=== PATIENT | female | born 1980 | race Two or more races ===

== ENCOUNTER 2018-05-09 22:18 | Emergency (ER) | payer MEDICAID ==
[~2018-05-09] VITALS: Ht 162.6 cm; Wt 62.1 kg
[2018-05-09 22:40] VITALS: BP 109/64
[2018-05-09 23:24] LABS: Basophils # (auto) 0.1 uL; Basophils % (auto) 0.8 % (0.0-2.0); Eosinophils # (auto) 0.1 uL; Eosinophils % (auto) 1.2 % (0.0-7.0); Hematocrit 36.1 % (36.0-46.0); Hemoglobin 12.3 g/dL (12.2-16.2); Lymphocytes # (auto) 1.7 uL; Mean Corpuscular Hemoglobin 31.4 pg (28.0-32.0); Mean Corpuscular Hgb Conc. 34.1 g/dL (32.0-36.0); Mean Corpuscular Volume 92.1 fL (80.0-100.0); Monocytes # (auto) 0.7 uL; Monocytes % (auto) 5.9 % (0.0-12.0); Neutrophils # (auto) 9.5 uL; Neutrophils % (auto) 78.1 % (37.0-80.0); Nucleated Red Blood Cells % 0.1 %; Platelet Count (auto) 250 10^3/uL (140-450); Red Blood Cells 3.93 10^6/uL (4.0-5.20); Red Cell Distribution Width 13.2 % (11.8-14.3); White Blood Cell 12.2 10^3/uL (4.4-10.8)
[2018-05-10 03:35] LABS: Albumin 2.7 g/dL (3.4-5.0); BUN/Creatinine Ratio 22.4; Bilirubin, Total 0.1 mg/dL (0.2-1.0); Calcium 8.1 mg/dL (8.5-10.1); Potassium 3.6 mmol/L (3.5-5.1); Total Protein 6.8 g/dL (6.4-8.2)
[2018-05-10 04:52] LABS: Urine Bacteria MANY /hpf (None Seen); Urine Blood 1+ /uL (Negative); Urine Mucus FEW (None Seen); Urine Specific Gravity 1.017 (1.001-1.035); Urine WBC 774 /hpf (0 - 5); Urine WBC Clumps PRESENT /hpf (None Seen)
== END 2018-05-10 01:56 | disposition left against medical advice (07) ==
LOC: ER 22:33
DX: R10.9 Unspecified abdominal pain (principal); R30.0 Dysuria; Z53.21 Procedure and treatment not carried out due to patient leaving prior to being seen by health care provider
CPT/HCPCS: 36415; 76775; 80053; 81001; 82150; 83690; 84702; 85025

== ENCOUNTER 2018-05-11 15:52 | Emergency (ER) | payer MEDICAID ==
[~2018-05-11] VITALS: Ht 162.6 cm; Wt 56.7 kg
[2018-05-11 16:58] VITALS: BP 107/72
[2018-05-11] MEDS: ACETAMINOPHEN 500 MG TAB PO ONE (17:11)
[2018-05-11] MEDS: cefTRIAXone SOD 1,000 MG VL IM ONE (17:12)
== END 2018-05-11 17:43 | disposition home or self-care (01) ==
LOC: ER 15:52
DX: O23.42 Unspecified infection of urinary tract in pregnancy, second trimester (principal); Z3A.20 20 weeks gestation of pregnancy
CPT/HCPCS: 81002; 96372; 99283; J0696

== ENCOUNTER 2018-06-15 21:50 | Emergency (ER) | payer MEDICAID ==
[~2018-06-15] VITALS: Ht 162.6 cm; Wt 61.2 kg
[2018-06-16 02:39] LABS: Urine Bacteria MOD /hpf (None Seen); Urine Blood 1+ /uL (Negative); Urine Mucus FEW (None Seen); Urine Specific Gravity 1.018 (1.001-1.035); Urine WBC 75 /hpf (0 - 5)
[2018-06-16] MEDS ORDERED: SODIUM CHLORIDE 0.9% 500 ML IVB ONE (02:56)
[2018-06-16] MEDS ORDERED: ACETAMINOPHEN 500 MG TAB PO ONE (03:00)
[2018-06-16] MEDS ORDERED: CEFTRIAXONE SODIUM 2 GM in D5W 5% 50 ML IV ONE (03:00)
[2018-06-16] MEDS ORDERED: cefTRIAXone 1GM/10ml IVPUSH 20 ML IV ONE (03:04)
[2018-06-16 03:28] LABS: Basophils # (auto) 0 uL; Basophils % (auto) 0.4 % (0.0-2.0); Eosinophils # (auto) 0.1 uL; Eosinophils % (auto) 0.6 % (0.0-7.0); Hematocrit 34.2 % (36.0-46.0); Hemoglobin 11.5 g/dL (12.2-16.2); Lymphocytes # (auto) 1.4 uL; Lymphocytes % (auto) 13.2 % (10.0-50.0); Mean Corpuscular Hemoglobin 31.7 pg (28.0-32.0); Mean Corpuscular Hgb Conc. 33.8 g/dL (32.0-36.0); Mean Corpuscular Volume 93.9 fL (80.0-100.0); Monocytes # (auto) 1.1 uL; Monocytes % (auto) 10.4 % (0.0-12.0); Neutrophils # (auto) 7.8 uL; Neutrophils % (auto) 75.4 % (37.0-80.0); Platelet Count (auto) 190 10^3/uL (140-450); Red Blood Cells 3.64 10^6/uL (4.0-5.20); Red Cell Distribution Width 13.3 % (11.8-14.3); White Blood Cell 10.3 10^3/uL (4.4-10.8)
[2018-06-16 03:46] LABS: Albumin 2.5 g/dL (3.4-5.0); BUN/Creatinine Ratio 21.7; Potassium 3.9 mmol/L (3.5-5.1)
[2018-06-16 03:49] LABS: Bilirubin, Total 0.3 mg/dL (0.2-1.0); Total Protein 6.8 g/dL (6.4-8.2)
[2018-06-16 05:42] VITALS: BP 91/57
== END 2018-06-16 06:27 | disposition home or self-care (01) ==
LOC: ER 21:50
DX: O23.43 Unspecified infection of urinary tract in pregnancy, third trimester (principal); Z3A.30 30 weeks gestation of pregnancy
CPT/HCPCS: 36415; 76775; 80053; 81001; 85025; 87086; 96374; 99285; J0696; J7030; 96365; J7060

== ENCOUNTER 2018-08-09 08:10 | Observation (INO) | payer MEDICAID | END 2018-08-09 09:10 | disposition home or self-care (01) | DRG 566 | LOC: LDRP 08:10 | PROVIDERS: ADMIT Obstetrics & Gynecology; ATTEND Obstetrics & Gynecology | DX: O99.89 Other specified diseases and conditions complicating pregnancy, childbirth and the puerperium (principal); N13.30 Unspecified hydronephrosis; O09.523 Supervision of elderly multigravida, third trimester; Z3A.35 35 weeks gestation of pregnancy | CPT/HCPCS: 59025; 81002; G0378 ==

== ENCOUNTER 2018-08-23 09:05 | Observation (INO) | payer MEDICAID ==
[2018-08-23] MEDS ORDERED: PREN-96 PO (10:11)
== END 2018-08-23 09:50 | disposition home or self-care (01) | DRG 566 ==
LOC: LDRP 09:05
PROVIDERS: ADMIT Specialist; ATTEND Specialist
DX: O62.9 Abnormality of forces of labor, unspecified (principal); Z3A.37 37 weeks gestation of pregnancy
CPT/HCPCS: 59025; 81002; G0378

== ENCOUNTER 2018-08-30 08:50 | Observation (INO) | payer MEDICAID ==
[~2018-08-30 08:50] MED LIST: PREN-96 PO
== END 2018-08-30 09:45 | disposition home or self-care (01) | DRG 566 ==
LOC: LDRP 08:50
PROVIDERS: ADMIT Specialist; ATTEND Specialist
DX: O23.01 Infections of kidney in pregnancy, first trimester (principal); N13.30 Unspecified hydronephrosis; O26.893 Other specified pregnancy related conditions, third trimester; O09.523 Supervision of elderly multigravida, third trimester; O62.9 Abnormality of forces of labor, unspecified; Z3A.38 38 weeks gestation of pregnancy
CPT/HCPCS: 59025; 81002; G0378

== ENCOUNTER 2018-09-07 10:00 | Observation (INO) | payer MEDICAID | END 2018-09-07 11:00 | disposition home or self-care (01) | DRG 566 | LOC: LDRP 10:00 | PROVIDERS: ADMIT Obstetrics & Gynecology; ATTEND Obstetrics & Gynecology | DX: O99.89 Other specified diseases and conditions complicating pregnancy, childbirth and the puerperium (principal); N13.30 Unspecified hydronephrosis; Z3A.39 39 weeks gestation of pregnancy | CPT/HCPCS: 59025; 81002; G0378 ==

== ENCOUNTER 2018-09-09 07:07 | Inpatient (IN) | payer MEDICAID ==
[2018-09-09] VITALS (15 sets, daily range): BP systolic 94–112; BP diastolic 53–75
[~2018-09-09] VITALS: Ht 162.6 cm; Wt 68.9 kg
[2018-09-09] MEDS ORDERED: LACTATED RINGER'S 1,000 ML IV ONE (07:15)
[2018-09-09] MEDS ORDERED: LACTATED RINGER'S 1,000 ML IV SCH (07:33)
[2018-09-09 08:16] LABS: Basophils # (auto) 0 uL; Basophils % (auto) 0.5 % (0.0-2.0); Eosinophils # (auto) 0.1 uL; Eosinophils % (auto) 1.3 % (0.0-7.0); Hematocrit 33.3 % (36.0-46.0); Hemoglobin 11.2 g/dL (12.2-16.2); Lymphocytes # (auto) 1.4 uL; Lymphocytes % (auto) 23.7 % (10.0-50.0); Mean Corpuscular Hemoglobin 28.3 pg (28.0-32.0); Mean Corpuscular Hgb Conc. 33.7 g/dL (32.0-36.0); Mean Corpuscular Volume 84.1 fL (80.0-100.0); Monocytes # (auto) 0.5 uL; Monocytes % (auto) 7.7 % (0.0-12.0); Neutrophils % (auto) 66.8 % (37.0-80.0); Platelet Count (auto) 172 10^3/uL (140-450); Red Blood Cells 3.95 10^6/uL (4.0-5.20); Red Cell Distribution Width 13.8 % (11.8-14.3)
[2018-09-09 08:31] LABS: INR 0.91 (0.9-1.15); Partial Thromboplastin Time 26.5 sec (23.78-33.04); Prothrombin Time 9.8 sec (9.27-12.13)
[2018-09-09 08:35] LABS: Albumin 2.6 g/dL (3.4-5.0); Potassium 3.7 mmol/L (3.5-5.1)
[2018-09-09 08:38] LABS: BUN/Creatinine Ratio 21.2; Bilirubin, Total 0.3 mg/dL (0.2-1.0); Total Protein 6.4 g/dL (6.4-8.2)
[2018-09-09] MEDS ORDERED: TERBUTALINE SULFATE 1 MG/ML 1ML VIAL SC ONE (09:00)
[2018-09-09 09:15] LABS: Urine Bacteria FEW /hpf (None Seen); Urine Blood Negative /uL (Negative); Urine Mucus FEW (None Seen); Urine Specific Gravity 1.028 (1.001-1.035); Urine WBC 3 /hpf (0 - 5)
[2018-09-09 09:29] LABS: Alcohol, Urine < 3.0 mg/dL (0-5); Amphetamine Screen, Urine NEGATIVE (NEGATIVE); Barbiturate Scree,Urine NEGATIVE (NEGATIVE); Benzodiazephine Screen, Urine NEGATIVE (NEGATIVE); Cannabinoid Screen, Urine NEGATIVE (NEGATIVE); Cocaine Screen, Urine NEGATIVE (NEGATIVE); Opiate Scree,Urine NEGATIVE (NEGATIVE); Phencyclidine Screen, Urine NEGATIVE (NEGATIVE)
[2018-09-09] MEDS ORDERED: TETRACAINE 1% INJ 2 ML VIAL IJ ONE (09:57)
[2018-09-09] MEDS ORDERED: MORPHINE SULF(PF) 0.5MG/ML 10ML VIAL ONE (10:05)
[2018-09-09] MEDS ORDERED: ePHEDrine SULFATE 50 MG/ML AMP ONE (10:06)
[2018-09-09] MEDS ORDERED: ONDANSETRON HCL 4 MG/2 ML VIAL ONE (10:06)
[2018-09-09] MEDS ORDERED: DEXAMETHASONE SOD PHOS 10MG/1ML VIAL INJ ONE (10:06)
[2018-09-09] MEDS ORDERED: ceFAZolin 1GM VL ONE (10:09)
[2018-09-09] MEDS ORDERED: OXYTOCIN 10 UNIT/ML 10ML VIAL ONE (10:10)
[2018-09-09] MEDS: LACTATED RINGER'S 1,000 ML IV SCH ×2 (11:28→19:28)
[2018-09-09] MEDS ORDERED: METOCLOPRAMIDE HCL 5MG/ml INJ 2ml VIAL IV ONE (11:30)
[2018-09-09] MEDS ORDERED: ONDANSETRON HCL 4 MG/2 ML VIAL IV ONE (11:30)
[2018-09-09] MEDS ORDERED: MORPHINE SULFATE 4 MG/ML SYR/VIAL IV PRN (11:30)
[2018-09-09] MEDS ORDERED: diphenhdrAMINE HCL 50 MG/1 ML VL IV PRN (11:30)
[2018-09-09] MEDS ORDERED: ePHEDrine SULFATE 50 MG/ML AMP IV PRN (11:30)
[2018-09-09] MEDS ORDERED: HYDROmorphone HCL 2 MG/ML VL IV PRN ×2 (11:30)
[2018-09-09] MEDS ORDERED: ONDANSETRON HCL 4 MG/2 ML VIAL IV PRN ×2 (11:30)
[2018-09-09] MEDS ORDERED: NALOXONE HCL 0.4 MG/ML VIAL IV PRN ×2 (11:30)
[2018-09-09] MEDS ORDERED: LABETALOL HCL 5 MG/ML 4ML SYRINGE IV PRN (11:30)
[2018-09-09] MEDS: KETOROLAC TROMETH 30 MG/ML 1ML VIAL IV SCH ×3 (12:00→23:52)
[2018-09-09] MEDS: ceFAZolin 1GM/50ML 50 ML IV SCH (17:49)
[2018-09-10] MEDS: ceFAZolin 1GM/50ML 50 ML IV SCH ×2 (02:00→09:41)
[2018-09-10] MEDS: LACTATED RINGER'S 1,000 ML IV SCH (03:28)
[2018-09-10 05:00] VITALS: BP 98/68
[2018-09-10 07:00] VITALS: BP 106/63
[2018-09-10 07:06] LABS: RPR Non Reactive (Non Reactive)
[2018-09-10 08:05] LABS: Basophils # (auto) 0 uL; Basophils % (auto) 0.3 % (0.0-2.0); Eosinophils # (auto) 0 uL; Eosinophils % (auto) 0.1 % (0.0-7.0); Hematocrit 30.8 % (36.0-46.0); Hemoglobin 10.2 g/dL (12.2-16.2); Lymphocytes # (auto) 1.9 uL; Lymphocytes % (auto) 17.6 % (10.0-50.0); Mean Corpuscular Hemoglobin 27.7 pg (28.0-32.0); Monocytes # (auto) 0.8 uL; Monocytes % (auto) 7.3 % (0.0-12.0); Neutrophils % (auto) 74.7 % (37.0-80.0); Platelet Count (auto) 179 10^3/uL (140-450); Red Blood Cells 3.67 10^6/uL (4.0-5.20); Red Cell Distribution Width 13.9 % (11.8-14.3); White Blood Cell 10.7 10^3/uL (4.4-10.8)
[2018-09-10] MEDS ORDERED: HYDROcodone-ACET 5/325MG TAB PO PRN (10:15)
[2018-09-10 11:15] VITALS: BP 110/68
[2018-09-10] MEDS: HYDROcodone-ACET 5/325MG TAB PO PRN ×2 (14:01→21:47)
[2018-09-10 15:10] VITALS: BP 112/77
[2018-09-10 18:30] VITALS: BP 112/70
[2018-09-10] MEDS: IBUPROFEN 800 MG TAB PO PRN (19:02)
[2018-09-10] MEDS: DOCUSATE SOD 100 MG CAP PO SCH (21:46)
[2018-09-10 22:56] VITALS: BP 95/62
[2018-09-11 03:00] VITALS: BP 101/52
[2018-09-11] MEDS: IBUPROFEN 800 MG TAB PO PRN ×2 (03:34→15:46)
[2018-09-11 06:45] VITALS: BP 112/64
[2018-09-11] MEDS: DOCUSATE SOD 100 MG CAP PO SCH ×2 (09:51→22:05)
[2018-09-11] MEDS: HYDROcodone-ACET 5/325MG TAB PO PRN ×2 (09:51→20:01)
[2018-09-11 11:10] VITALS: BP 114/73
[2018-09-11 15:00] VITALS: BP 122/67
[2018-09-11 19:15] VITALS: BP 116/67
[2018-09-11] MEDS ORDERED: BISACODYL 10 MG RECT SUPP PR ONE (22:00)
[2018-09-11 23:15] VITALS: BP 101/62
[2018-09-12] MEDS: HYDROcodone-ACET 5/325MG TAB PO PRN ×2 (04:12→10:22)
[2018-09-12 07:20] VITALS: BP 112/76
[2018-09-12] MEDS: DOCUSATE SOD 100 MG CAP PO SCH (10:22)
[2018-09-12 11:10] VITALS: BP 112/68
== END 2018-09-12 11:00 | disposition home or self-care (01) | DRG 540 ==
LOC: LDRP 07:07
PROVIDERS: ADMIT Specialist; ATTEND Specialist
PROC: 10D00Z1 Extraction of Products of Conception, Low, Open Approach (ICD-10-PCS; principal; 2018-09-09 10:11)
DX: O34.211 Maternal care for low transverse scar from previous cesarean delivery (principal); O75.89 Other specified complications of labor and delivery; Z37.0 Single live birth; Z3A.39 39 weeks gestation of pregnancy
CPT/HCPCS: 36415; 51702; 59025; 80053; 80307; 81001; 85025; 85610; 85730; 86592; 86850; 86900; 86901; 94760; 96361; 96365; 96366; 96375; G0378; J0690; J1100; J1885; J2405; J2590